=== PATIENT | female | born 2000 | race Caucasian/White ===

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

== ENCOUNTER 2022-03-23 22:24 | Outpatient (CLI) | payer BC | END 2022-03-23 22:25 | disposition critical access hospital (66) | LOC: EMS 22:24 | DX: R55 Syncope and collapse (principal); R56.9 Unspecified convulsions; R00.0 Tachycardia, unspecified; X30.XXXA Exposure to excessive natural heat, initial encounter; Y92.830 Public park as the place of occurrence of the external cause | CPT/HCPCS: A0425; A0427 ==

== ENCOUNTER 2022-03-23 22:37 | Emergency (ER) | payer BC ==
[~2022-03-23 22:37] MED LIST: NALOXONE 0.4 MG/ML VIAL ONE
[2022-03-23] MEDS ORDERED: PROPOFOL 1000 MG/100 ML 1,000 MG/100 ML BOTTLE IV ONE (23:02)
[2022-03-23] MEDS ORDERED: MIDAZOLAM 2 MG/2 ML VIAL ONE (23:02)
[2022-03-23] MEDS ORDERED: KETAMINE 500 MG/10 ML VIAL ONE (23:02)
[2022-03-23] MEDS ORDERED: ETOMIDATE 40 MG/20 ML VIAL IVP ONE (23:02)
[2022-03-23] MEDS ORDERED: SUCCINYLCHOLINE 200 MG/10 ML VIAL ONE (23:03)
[2022-03-23] MEDS ORDERED: ROCURONIUM 50 MG/5 ML VIAL ONE (23:03)
[2022-03-23] MEDS ORDERED: PROPOFOL 200 MG/20 ML VIAL IVP ONE (23:03)
--- NOTE | 2022-03-23 23:04 | ED Physician Documentation ---
PD HPI ALTERED MENTAL STATUS - Stated complaint Stated Complaint: HEAT STROKE/SZ - Chief complaint Chief Complaint: Neuro - History obtained from History obtained from: EMS - History of Present Illness Timing - onset: How many hours ago (2) - Additional information Additional information: 21yoF with unknown past medical history (EMS reports miscarriage at unknown weeks yesterday) presents by EMS for seizure, possible heatstroke. Patient called 911 because she was feeling lightheaded while walking on a trail. When EMS arrived she was stumbling and incoherent. She fell on her knees and landed on her face. She subsequently began experiencing seizure-like activity. They state that her rectal temperature at that time was 102 Fahrenheit. Initial GCS 9 EMS states that it took a prolonged amount of time to get patient off of the [place] due to her location. She remained altered and minimally responsive the entire 1hr 45minutes during stabilization and transport. Patient received 5 mg IV Versed in route. EKG shows sinus tachycardia. Accu-Chek was not obtained by EMS in the field. Shortly after arrival patient was taken to trauma bay where she was exposed and assessed. Accu-Chek 93, repeat rectal temperature 97.3F. Patient remained with GCS 6 ([id number]), and was subsequently intubated for airway protection. Review of Systems Unable to obtain: AMS PD PAST MEDICAL HISTORY - Present Medications Home Medications: Ambulatory Orders Medication Instructions Recorded Confirmed Aripiprazole [Abilify] 2 mg PO DAILY 01/25/21 01/25/21 Sertraline [Zoloft] 50 mg PO DAILY 01/25/21 01/25/21 hydrOXYzine PAMOATE [Vistaril] 25 mg PO PRN PRN 01/25/21 01/25/21 - Allergies Allergies/Adverse Reactions: Allergies Allergy/AdvReac Type Severity Reaction Status Date / Time No Known Drug Allergies Allergy Verified 01/25/21 05:58 PD ED PE NORMAL - Vitals Vital signs reviewed: Yes - General General: Other (GCS 6, not responsive) - HEENT HEENT: Atraumatic, PERRL, Ears normal, Moist mucous membranes - Neck Neck: Supple, no meningeal sign, No bony TTP, No adenopathy - Cardiac Cardiac: Strong equal pulses, Other (tachycardia) - Respiratory Respiratory: No respiratory distress, Clear bilaterally - Abdomen Abdomen: Soft, Non tender, Non distended - Derm Derm: Normal color, Warm and dry, No rash - Extremities Extremities: No deformity, No tenderness to palpate, No edema - Neuro Eye Opening: Spontaneous Motor: None Verbal: None GCS Score: 6 Results - Vitals Vitals: Vital Signs - 24 hr 03/23/22 03/23/22 03/23/22 22:40 23:10 23:30 Temperature 36.2 C L 36.6 C Heart Rate 132 H 104 H 93 Respiratory 26 H 20 Rate Blood Pressure 127/71 155/95 H 135/75 H O2 Saturation 100 100 100 03/24/22 03/24/22 03/24/22 00:00 00:30 01:00 Temperature 36.6 C 36.6 C 36.6 C Heart Rate 90 91 89 Respiratory 20 20 18 Rate Blood Pressure 137/76 H 164/119 H 112/90 H O2 Saturation 100 97 100 03/24/22 01:50 Temperature 36.6 C Heart Rate 88 Respiratory 16 Rate Blood Pressure 123/68 O2 Saturation 99 Oxygen O2 Source Room air - Labs Labs: Laboratory Tests 03/23/22 03/23/22 03/23/22 22:52 22:52 22:52 WBC 8.3 RBC 3.71 L Hgb 10.6 L Hct 32.6 L MCV 87.9 MCH 28.6 MCHC 32.5 RDW 14.0 Plt Count 293 MPV 11.2 H Neut # (Auto) 6.1 Lymph # (Auto) 1.7 [place] # (Auto) 0.5 Eos # (Auto) 0.0 Baso # (Auto) 0.0 Absolute Nucleated RBC 0.00 Nucleated RBC % 0.0 Bld Gas Analysis Time Sample Site ABG pH ABG pCO2 ABG pO2 ABG HCO3 ABG Total CO2 ABG O2 Saturation ABG Base Excess Shen Test Respiration Rate O2 Delivery Device Vent Mode FiO2 Tidal Volume PEEP Sodium 140 Potassium 3.8 Chloride 105 Carbon Dioxide 21 Anion Gap 14.0 H BUN 11 Creatinine 0.9 Estimated GFR (MDRD) 81 L Glucose 100 Lactic Acid 3.3 H* Calcium 9.2 Total Bilirubin 0.8 AST 30 ALT 18 Alkaline Phosphatase 59 Total Creatine Kinase 280 H Total Protein 8.1 Albumin 4.4 Globulin 3.7 Albumin/Globulin Ratio 1.2 Urine Color Urine Clarity Urine pH Ur Specific [place] Urine Protein Urine Glucose (UA) Urine Ketones Urine Occult Blood Urine Nitrite Urine Bilirubin Urine Urobilinogen Ur Leukocyte Esterase Ur Microscopic Review Urine Culture Comments Urine HCG, Qual Nasal Adenovirus (PCR) Nasal B. parapertussis DNA (PCR) Nasal Coronavir 229E PCR Nasal Coronavir HKU1 PCR Nasal Coronavir NL63 PCR Nasal Coronavir OC43 PCR Nasal Enterovir/Rhinovir PCR Nasal Influenza B PCR Nasal Influenza A PCR Nasal Parainfluen 1 PCR Nasal Parainfluen 2 PCR Nasal Parainfluen 3 PCR Nasal Parainfluen 4 PCR Nasal RSV (PCR) Nasal B.pertussis DNA PCR Nasal C.pneumoniae (PCR) Jamal Human Metapneumo PCR Nasal M.pneumoniae (PCR) Nasal SARS-CoV-2 (PCR) Salicylates < 6.0 Urine Opiates Screen Ur Oxycodone Screen Urine Methadone Screen Ur Propoxyphene Screen Acetaminophen < 10 L Ur Barbiturates Screen Ur Tricyclics Screen Ur Phencyclidine Scrn Ur Amphetamine Screen U Methamphetamines Scrn U Benzodiazepines Scrn Urine Cocaine Screen U Cannabinoids Screen Ethyl Alcohol < 5.0 03/23/22 03/23/22 03/23/22 23:10 23:10 23:10 WBC RBC Hgb Hct MCV MCH MCHC RDW Plt Count MPV Neut # (Auto) Lymph # (Auto) [place] # (Auto) Eos # (Auto) Baso # (Auto) Absolute Nucleated RBC Nucleated RBC % Bld Gas Analysis Time Sample Site ABG pH ABG pCO2 ABG pO2 ABG HCO3 ABG Total CO2 ABG O2 Saturation ABG Base Excess Shen Test Respiration Rate O2 Delivery Device Vent Mode FiO2 Tidal Volume PEEP Sodium Potassium Chloride Carbon Dioxide Anion Gap BUN Creatinine Estimated GFR (MDRD) Glucose Lactic Acid Calcium Total Bilirubin AST ALT Alkaline Phosphatase Total Creatine Kinase Total Protein Albumin Globulin Albumin/Globulin Ratio Urine Color YELLOW Urine Clarity CLEAR Urine pH 6.5 Ur Specific [place] <=1.005 Urine Protein NEGATIVE Urine Glucose (UA) NEGATIVE Urine Ketones NEGATIVE Urine Occult Blood TRACE-INTA Urine Nitrite NEGATIVE Urine Bilirubin NEGATIVE Urine Urobilinogen 0.2 (NORMAL) Ur Leukocyte Esterase NEGATIVE Ur Microscopic Review NOT INDICATED Urine Culture Comments NOT INDICATED Urine HCG, Qual Nasal Adenovirus (PCR) NOT DETECTED Nasal B. parapertussis DNA (PCR) NOT DETECTED Nasal Coronavir 229E PCR NOT DETECTED Nasal Coronavir HKU1 PCR NOT DETECTED Nasal Coronavir NL63 PCR NOT DETECTED Nasal Coronavir OC43 PCR NOT DETECTED Nasal Enterovir/Rhinovir PCR NOT DETECTED Nasal Influenza B PCR NOT DETECTED Nasal Influenza A PCR NOT DETECTED Nasal Parainfluen 1 PCR NOT DETECTED Nasal Parainfluen 2 PCR NOT DETECTED Nasal Parainfluen 3 PCR NOT DETECTED Nasal Parainfluen 4 PCR NOT DETECTED Nasal RSV (PCR) NOT DETECTED Nasal B.pertussis DNA PCR NOT DETECTED Nasal C.pneumoniae (PCR) NOT DETECTED Jamal Human Metapneumo PCR NOT DETECTED Nasal M.pneumoniae (PCR) NOT DETECTED Nasal SARS-CoV-2 (PCR) NOT DETECTED Salicylates Urine Opiates Screen NEGATIVE Ur Oxycodone Screen NEGATIVE Urine Methadone Screen NEGATIVE Ur Propoxyphene Screen NEGATIVE Acetaminophen Ur Barbiturates Screen NEGATIVE Ur Tricyclics Screen NEGATIVE Ur Phencyclidine Scrn NEGATIVE Ur Amphetamine Screen NEGATIVE U Methamphetamines Scrn NEGATIVE U Benzodiazepines Scrn NEGATIVE Urine Cocaine Screen NEGATIVE U Cannabinoids Screen NEGATIVE Ethyl Alcohol 03/23/22 03/23/22 23:10 23:25 WBC RBC Hgb Hct MCV MCH MCHC RDW Plt Count MPV Neut # (Auto) Lymph # (Auto) [place] # (Auto) Eos # (Auto) Baso # (Auto) Absolute Nucleated RBC Nucleated RBC % Bld Gas Analysis Time 2335 Sample Site LEFT BRACHIAL ABG pH 7.48 H ABG pCO2 28 L ABG pO2 110 H ABG HCO3 20.4 L ABG Total CO2 21.2 ABG O2 Saturation 98 ABG Base Excess -2.3 L Shen Test POSITIVE Respiration Rate 16 O2 Delivery Device VENTILATOR Vent Mode ASSIST/CONTROL FiO2 100.00 Tidal Volume 450 PEEP 5 Sodium Potassium Chloride Carbon Dioxide Anion Gap BUN Creatinine Estimated GFR (MDRD) Glucose Lactic Acid Calcium Total Bilirubin AST ALT Alkaline Phosphatase Total Creatine Kinase Total Protein Albumin Globulin Albumin/Globulin Ratio Urine Color Urine Clarity Urine pH Ur Specific [place] Urine Protein Urine Glucose (UA) Urine Ketones Urine Occult Blood Urine Nitrite Urine Bilirubin Urine Urobilinogen Ur Leukocyte Esterase Ur Microscopic Review Urine Culture Comments Urine HCG, Qual POSITIVE Nasal Adenovirus (PCR) Nasal B. parapertussis DNA (PCR) Nasal Coronavir 229E PCR Nasal Coronavir HKU1 PCR Nasal Coronavir NL63 PCR Nasal Coronavir OC43 PCR Nasal Enterovir/Rhinovir PCR Nasal Influenza B PCR Nasal Influenza A PCR Nasal Parainfluen 1 PCR Nasal Parainfluen 2 PCR Nasal Parainfluen 3 PCR Nasal Parainfluen 4 PCR Nasal RSV (PCR) Nasal B.pertussis DNA PCR Nasal C.pneumoniae (PCR) Jamal Human Metapneumo PCR Nasal M.pneumoniae (PCR) Nasal SARS-CoV-2 (PCR) Salicylates Urine Opiates Screen Ur Oxycodone Screen Urine Methadone Screen Ur Propoxyphene Screen Acetaminophen Ur Barbiturates Screen Ur Tricyclics Screen Ur Phencyclidine Scrn Ur Amphetamine Screen U Methamphetamines Scrn U Benzodiazepines Scrn Urine Cocaine Screen U Cannabinoids Screen Ethyl Alcohol Procedures - Intubation Provider: Emergency physician Medications: Etomidate, Rocuronium Blade: Bruna (3) Tube: Size-enter number (7.5), Cuffed, Marked at lips-enter cm (24) Confirmation: Direct visualization, Bilateral breath sounds, No abdominal breath sound, End tidal CO2, Pulse ox, Chest xray Complications: No compications PD MEDICAL DECISION MAKING - ED course Complexity details: reviewed old records, reviewed results, re-evaluated patient, considered differential ED course: Patient arrived with unknown past medical history with possible seizure-like activity for greater than 1 hour. Intubated on arrival for airway protection. Given previous history of miscarriage will give magnesium. Hemodynamically stable otherwise. Patient has been stabilized on the ventilator, sedated on propofol. I was able to review the records, patient was seen here in December 2020 with nearly identical presentation. At that time ED provider noted that records from outside [facility] indicated that patient had history of pseudoseizures. At this time work-up is ongoing. All labs and imaging reviewed. Patient is now fully awake, following commands. Writing notes to nurse that she hates being intubated and wants the tube out now. 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 PUSHPA shows 34 visits to numerous EDs for various reasons, including seizures, factitious disorder, borderline personality disorder. RSBI 45, after period of observation patient was extubated without issue. Will monitor until morning. Patient requesting to leave. Mother arrived, states that patient has documented hx of pseudoseizures and this has happened numerous times at other facilities. Patient is not follow by neurology or psychiatry. Mother states that she will take the patient home. At the time of discharge patient was alert, oriented x4, no distress, ambulatory without assistance, requesting to go home. Strongly encouraged to follow up with primary, neurology, and psychiatry - Critical Care Time(min): 50 Time Includes: Direct patient care, Review records, Reassess patient, Document care, Coordinate care, Medical consult Data interpretation: Labs, Pulse ox, ABG, CXR, Prior EKG, Cardiac output Procedures included in critical care time: Peripheral IV, Ventilator mgmt, See progress note Procedures excluded from critical care time: EKG, See progress note Departure - Departure Disposition: 01 Home, Self Care Clinical Impression: Pseudoseizure Instructions: Epilepsy Safety During Seizure Comments: I STRONGLY RECOMMEND FOLLOW UP WITH BOTH NEUROLOGY AND PSYCHIATRY. Discharge Date/Time: 03/24/22 01:50
[2022-03-23 23:12] LABS: BASOPHILS % (AUTO) 0.4 %; EOSINOPHILS % (AUTO) 0.2 %; HCT - HEMATOCRIT 32.6 % (37.0-47.0); HGB - HEMOGLOBIN 10.6 g/dL (12.0-16.0); LYMPHOCYTES # (AUTO) 1.7 10^3/uL (1.5-3.5); LYMPHOCYTES % (AUTO) 20.3 %; MEAN CORPUSCULAR HEMOGLOBIN 28.6 pg (27.0-31.0); MEAN CORPUSCULAR HGB CONC 32.5 g/dL (32.0-36.0); MEAN CORPUSCULAR VOLUME 87.9 fL (81.0-99.0); MEAN PLATELET VOLUME 11.2 fL (7.9-10.8); MONOCYTES # (AUTO) 0.5 10^3/uL (0.0-1.0); MONOCYTES % (AUTO) 5.8 %; NEUTROPHILS # (AUTO) 6.1 10^3/uL (1.5-6.6); NEUTROPHILS % (AUTO) 73.1 %; PLT - PLATELET COUNT 293 10^3/uL (130-450); RED BLOOD COUNT 3.71 10^6/uL (4.20-5.40); WHITE BLOOD COUNT 8.3 x10^3/uL (4.8-10.8)
[2022-03-23 23:15] LABS: MUDS CUTOFF CONCENTRATIONS CUTOFF CONC BELOW:
[2022-03-23 23:21] LABS: BILIRUBIN,URINE NEGATIVE (NEGATIVE); GLUCOSE, URINE (UA) NEGATIVE (NEGATIVE); KETONES,URINE (UA) NEGATIVE (NEGATIVE); LEUKOCYTE ESTERASE, URINE NEGATIVE (NEGATIVE); NITRITE,URINE NEGATIVE (NEGATIVE); OCCULT BLOOD,URINE TRACE-INTA (NEGATIVE); PH,URINE 6.5 PH (5.0-7.5); PROTEIN,URINE NEGATIVE (NEGATIVE); UROBILINOGEN,URINE 0.2 (NORMAL) E.U./dL (NORMAL)
[2022-03-23 23:22] LABS: ACETAMINOPHEN < 10 ug/mL (10-30); ALBUMIN 4.4 g/dL (3.2-5.5); ALBUMIN/GLOBULIN RATIO 1.2 (1.0-2.2); ALKALINE PHOSPHATASE 59 IU/L (42-121); ALT ALANINE AMINOTRANSFERASE 18 IU/L (10-60); AST ASPARTATE AMINOTRANSFERASE 30 IU/L (10-42); BILIRUBIN,TOTAL 0.8 mg/dL (0.2-1.0); BUN - BLOOD UREA NITROGEN 11 mg/dL (6-20); CALCIUM 9.2 mg/dL (8.5-10.3); CARBON DIOXIDE - CO2 21 mmol/L (21-32); CHLORIDE 105 mmol/L (101-111); CK- CREATINE KINASE 280 IU/L (22-269); CREATININE 0.9 mg/dL (0.4-1.0); ETOH - ETHANOL < 5.0 mg/dL; GFR - MDRD 81 (>89); GLUCOSE 100 mg/dL (70-100); POTASSIUM 3.8 mmol/L (3.5-5.0); SALICYLATE < 6.0 mg/dL; SODIUM 140 mmol/L (135-145); TOTAL PROTEIN 8.1 g/dL (6.7-8.2)
[2022-03-23 23:25] LABS: CLARITY,URINE CLEAR (CLEAR); HCG UR QUAL POSITIVE
[2022-03-23 23:36] LABS: ABG BASE EXCESS -2.3 mmol/L (-2.0-3.0); ABG HCO3 20.4 mmol/L (22.0-26.0); ABG MODE OF VENTILATION ASSIST/CONTROL; ABG OXYGEN SATURATION 98 % (94-98); ABG PCO2 28 mmHg (34-45); ABG PH 7.48 (7.35-7.45); ABG PO2 110 mmHg (80-100); ABG TCO2 21.2 MMOL/L (21.0-29.0); ALLEN TEST POSITIVE
[2022-03-23 23:37] LABS: ABG RESPIRATORY RATE 16 b/min
[2022-03-23 23:38] LABS: AMPHETAMINE SCREEN,URINE NEGATIVE (NEGATIVE); BARBITURATE SCREEN,UR NEGATIVE (NEGATIVE); BENZODIAZEPINES SCREEN, URINE NEGATIVE (NEGATIVE); COCAINE SCREEN URINE NEGATIVE (NEGATIVE); METHADONE SCREEN, URINE NEGATIVE (NEGATIVE); METHAMPHETAMINES SCREEN, URINE NEGATIVE (NEGATIVE); OPIATE SCREEN, URINE NEGATIVE (NEGATIVE); OXYCODONE SCREEN, URINE NEGATIVE (NEGATIVE); PROPOXYPHENE SCREEN, URINE NEGATIVE (NEGATIVE); THC CANNABINOID SCREEN, URINE NEGATIVE (NEGATIVE); TRICYCLIC ANTIDEPRESSANT,URINE NEGATIVE (NEGATIVE)
[2022-03-23] MEDS ORDERED: SODIUM CHLORIDE 0.9% 1,000 ML IV ONE (23:40)
[2022-03-23] MEDS ORDERED: MAGNESIUM SULFATE 2 GRAM 2 GM/50 ML BAG IV ONE (23:41)
[2022-03-23] MEDS ORDERED: PROPOFOL 1000 MG/100 ML 1,000 MG/100 ML BOTTLE IV SCH (23:45)
[2022-03-24] MEDS ORDERED: ETOMIDATE 40 MG/20 ML VIAL IVP STA (00:18)
[2022-03-24] MEDS ORDERED: ROCURONIUM 50 MG/5 ML VIAL IVP STA (00:18)
--- NOTE | 2022-03-24 00:20 | XRAY Report ---
PROCEDURE: Chest for Line Placement INDICATIONS: post intubation TECHNIQUE: One view of the chest was acquired. COMPARISON: CT chest 01/25/2021. FINDINGS: Endotracheal tube terminates at the tracheal bifurcation and deviates towards the right. Retraction b y approximately 1.5 cm recommended. Enteric tube terminates in appropriate position in the proximal s tomach. Both lungs symmetrically expanded. No visible pleural effusion or findings of pneumothorax. Normal he art size. IMPRESSION: Recommend 1.5 cm retraction of endotracheal tube, which terminates at the yuan and deviates towards the right. Reviewed by: Dawson Alvarenga MD on 03/24/2022 12:19 AM PDT Approved by: Dawson Alvarenga MD on 03/24/2022 12:19 AM PDT Station ID: [id number]
[2022-03-24 00:28] LABS: B. PARAPERTUSSIS- RESP PCR PAN NOT DETECTED; B. PERTUSSIS- RESP PCR PANEL NOT DETECTED; C. PNEUMONIAE- RESP PCR PANEL NOT DETECTED; CORONAVIRUS 229E-RESP PCR NOT DETECTED; CORONAVIRUS HKU1-RESP PCR NOT DETECTED; CORONAVIRUS NL63-RESP PCR NOT DETECTED; CORONAVIRUS OC43-RESP PCR NOT DETECTED; HUMAN METAPNEUMOVIRUS NOT DETECTED; INFLUENZA A- RESP PCR PANEL NOT DETECTED; INFLUENZA B - RESP PCR PANEL NOT DETECTED; M. PNEUMONIAE- RESP PCR PANEL NOT DETECTED; PARAINFLUENZA VIRUS 1 NOT DETECTED; PARAINFLUENZA VIRUS 2 NOT DETECTED; PARAINFLUENZA VIRUS 3 NOT DETECTED; PARAINFLUENZA VIRUS 4 NOT DETECTED; RHINOVIRUS/ENTEROVIRUS NOT DETECTED; RSV- RESP PCR PANEL NOT DETECTED; SARS-CoV-2 -RESP PCR PANEL NOT DETECTED
--- NOTE | 2022-03-24 00:28 | CT Report ---
PROCEDURE: HEAD WO INDICATIONS: AMS, STATUS EPILEPTICUS, FALL TECHNIQUE: Noncontrast 4.5 mm thick angled axial sections acquired from the foramen magnum to the vertex. For r adiation dose reduction, the following was used: automated exposure control, adjustment of mA and/or kV according to patient size. COMPARISON: None. FINDINGS: Image quality: Excellent. CSF spaces: Basal cisterns are patent. No extra-axial fluid collections. Ventricles are normal in size and shape. Brain: No midline shift. No intracranial masses or hemorrhage. Domínguez-white matter interface is norm al. Skull and face: Calvarium and visualized facial bones are intact, without suspicious lesions. Sinuses: Visualized sinuses and mastoids are clear. IMPRESSION: No acute intracranial finding. Reviewed by: Dawson Alvarenga MD on 03/24/2022 12:27 AM PDT Approved by: Dawson Alvarenga MD on 03/24/2022 12:27 AM PDT Station ID: [id number]
--- NOTE | 2022-03-24 00:32 | CT Report ---
PROCEDURE: CERVICAL SPINE WO INDICATIONS: AMS, STATUS EPILEPTICUS, FALL TECHNIQUE: Noncontrast 3 mm thick sections acquired from the skull base to the T4 level. Sagittal and coronal r eformats were then constructed. For radiation dose reduction, the following was used: automated exp osure control, adjustment of mA and/or kV according to patient size. COMPARISON: None. FINDINGS: Right mainstem bronchus intubation with left lung collapse which has progressed rapidly when compared with most recent chest radiograph. No fracture or dislocation. IMPRESSION: Left lung atelectasis secondary to right mainstem bronchus intubation. Endotracheal tube retraction r ecommended. No CT evidence of acute traumatic cervical spine injury. Reviewed by: Dawson Alvarenga MD on 03/24/2022 12:31 AM PDT Approved by: Dawson Alvarenga MD on 03/24/2022 12:31 AM PDT Station ID: [id number]
[2022-03-24 01:51] VITALS: BP 123/68
== END 2022-03-24 01:50 | disposition home or self-care (01) ==
LOC: EDUNIT# → ED 22:37
DX: R56.9 Unspecified convulsions (principal); Z87.59 Personal history of other complications of pregnancy, childbirth and the puerperium
CPT/HCPCS: 31500; 36415; 36600; 51702; 70450; 72125; 80053; 80306; 80307; 80320; 80329; 81003; 81025; 82550; 82803; 83605; 85025; 87633; 93005; 94002; 96365; 96366; 96368; 99291; J0330; 81001; 87086; 94770